=== PATIENT | male | born 1940 | race Caucasian/White ===

== ENCOUNTER 2024-06-27 21:49 | Emergency (ER) | payer MEDICARE, SELFPAY ==
[2024-06-27 21:50] VITALS: BP 206/91
--- NOTE | 2024-06-28 00:10 | ED.GENMED ---
History of Present Illness
General
Chief Complaint: Nose Bleed
Source: patient
Exam Limitations: none
Time Seen by Provider: 06/27/24 23:52
History of Present Illness
History of Present Illness:
See MDM
Past History
Past History
ED Past Medical History: Arrthythmia, CHF and HTN
ED Past Surgical History: Tonsilectomy
Social History
Tobacco: Non-smoker
Alcohol: None
Drug: None
Personal:
Living: with family
Phy Exam
Physical Exam
Physical Exam:
See MDM
Course
Orders/Labs/Results
Orders:
Orders
06/28/24 00:14
Prothrombin Time Urgent
Abnormal Lab Results
06/28/24
00:14
PT 30.8 H Sec
(11.4-14.6)
Vital Signs
Initial and Last Documented VS:
Initial Vital Signs
Temp Pulse Resp BP Pulse Ox
97.6 F 77 18 206/91 97
06/27/24 21:50 06/27/24 21:50 06/27/24 21:50 06/27/24 21:50 06/27/24 21:50
Last Documented Vital Signs
Temp Pulse Resp BP Pulse Ox
97.6 F 77 18 206/91 97
06/27/24 21:50 06/27/24 21:50 06/27/24 21:50 06/27/24 21:50 06/27/24 21:50
Procedures
Nosebleed
Drug treatment: none
Treatment: Silver nitrate cautery
Post treatment bleeding: none- good control
MDM/Problems Addressed
Differential Diagnosis Includes:
HPI and MDM Narrative:
83-year-old male presenting for evaluation of left-sided nosebleeding. He states it has been on and off for the past 1.5 weeks. He is on Coumadin. He noted a scabbed left nose. He accidentally picked it off and it started bleeding again for the
past 3 hours. It appears to be more of an ooze than a hemorrhage. On exam, there is a small area on the nasal septum that appears to have been recently bleeding. I placed a small amount of silver nitrate over the area to cauterize it. Patient
tolerated procedure well. Will obtain INR
Physical exam
General: Well appearing and non-toxic
HEENT: protecting airway. Small area of excoriation to left septum. No active bleeding. Small oozing noted
Neck: appears supple
CV: No evidence of cyanosis
Resp: No accessory muscle use
Abd: Non-distended
Extremities: No deformities
Neuro: alert
Psych: Normal affect
Skin: Intact
Problems Addressed including Acute and Chronic Conditions affecting care:
1. Left anterior epistaxis
Acuity: acute
Prognosis: stable
Details: Silver nitrate cauterized exposed area and patient tolerated procedure well
Updates
INR therapeutic. Patient was comfortable going home. No acute bleeding
Differential Diagnosis (but not limited to): Nosebleed, supratherapeutic INR
Testing considered: Hemoglobin testing
Drug therapy (if applicable): OTC meds, please see d/c instruction regarding Rx drugs
Amount and/or Complexity of Data Reviewed
Clinical info obtained from: Patient
External data reviewed: N/A
Labs I independently reviewed (but not limited to): INR
Radiology: N/A
Pulse Ox: not hypoxic
EKG independently reviewed: N/A
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
Critical Care: N/A
Risk of Complication:
Social Determinants of health: Good social support
Discussed with other providers: N/A
Escalation of Care includes Admit/Obs: After being observed in the Emergency Department, pt stable for discharge.
Occasional wrong word or 'sound a like' substitutions may have occurred due to the inherent limitations of voice recognition software. Read the chart carefully and recognize, using context, where substitutions have occurred.
*Critical Care Note
Total Time (30-74mins, 75-104mins- exclusive of procedures): Not Applicable
ED Attending Note
-
Portions of this chart may have been created with voice recognition software.� Occasional wrong word or��sound alike� substitutions may have occurred due to the inherent limitations of voice recognition software.
Discharge Plan
Departure
Patient Disposition: Home (Routine Discharge)
Date of Disposition: 06/28/24
Time of Disposition: 00:53
Patient with high blood pressure during this ER visit?: Yes
Discharge Problem:
Epistaxis
Instructions: Nosebleeds (DC), BLOOD PRESSURE
Prescriptions:
No Action
atenolol 25 mg tablet
25 mg PO BID
warfarin 2.5 mg tablet
2.5 mg PO SUTUWEFRSA
valsartan 80 mg tablet
80 mg PO DAILY@1200
simvastatin 20 mg tablet
20 mg PO HS
furosemide 20 mg tablet
20 mg PO DAILY
ipratropium bromide 42 mcg (0.06 %) spray,non-aerosol
2 spray INTRANASAL HS
sildenafil (pulm.hypertension) 20 mg tablet
40 - 100 mg PO DAILY PRN (Reason: sexual activity)
olopatadine 0.6 % spray,non-aerosol
2 spray INTRANASAL TID
warfarin 2.5 mg tablet
3.75 mg PO MOTH
Referrals:
Zach Rowe MD [Family Provider] -
Jairo Munoz MD [Active] -
Activity Restrictions/Additional Instructions:
Please return for any worsening symptoms.
You may return at any time if you have further concerns.
Please follow up with your doctor at the first available appointment, preferably this week. Please discuss your symptoms and your blood pressure.
Please follow-up with ENT for persistent symptoms.
Thank you for choosing [facility].
Interventions
Interventions:
*Risk Screen - Suicide Last Done: 06/27/24 21:50
*General Assessment Last Done: 06/27/24 21:50
*Neglect/Abuse Screening Last Done: 06/27/24 21:50
*ED- Fall Risk Assessment Last Done: 06/28/24 00:54
*ED COVID-19 Vaccine History Last Done: 06/27/24 21:50
ED-EENT Assessment Last Done: 06/28/24 00:15
Discharge Date and Time
Print Language: ARABIC
[2024-06-28 00:35] LABS: INR 2.97; PT 30.8 Sec (11.4-14.6)
[2024-06-28 00:53] VITALS: BP 184/76
== END 2024-06-28 01:15 | disposition home or self-care (01) ==
LOC: EMR 21:49
PROVIDERS: EMERGENCY PHYSICIAN Student in an Organized Health Care Education/Training Program; FAMILY PHYSICIAN Internal Medicine
DX: R04.0 Epistaxis (principal); I11.0 Hypertensive heart disease with heart failure; I50.9 Heart failure, unspecified
CPT/HCPCS: 99283; 30901; 85610